=== PATIENT | female | born 1985 | race African-American/Black ===

== ENCOUNTER 2017-07-15 22:47 | Emergency (ER) | payer SELFPAY | END 2017-07-16 02:06 | disposition home or self-care (01) | LOC: ER 22:47 | DX: S69.91XA Unspecified injury of right wrist, hand and finger(s), initial encounter (principal); S69.92XA Unspecified injury of left wrist, hand and finger(s), initial encounter; X58.XXXA Exposure to other specified factors, initial encounter; Y93.89 Activity, other specified; Y92.89 Other specified places as the place of occurrence of the external cause; Y99.8 Other external cause status | CPT/HCPCS: 99283 ==

== ENCOUNTER 2018-09-30 18:43 | Emergency (ER) | payer SELFPAY ==
[~2018-09-30] VITALS: Ht 162.6 cm; Wt 72.6 kg
[~2018-09-30 18:43] MED LIST: BACI3.5O8 OS; HYDR25TA PO; SULF1TAB24 PO
[2018-09-30 19:32] LABS: BILIRUBIN,URINE NEGATIVE (NEG); CLARITY,URINE CLEAR; COLOR,URINE YELLOW; NITRITE,URINE NEGATIVE (NEG); PH,URINE 5.5; PROTEIN,URINE NEGATIVE (NEG-TRACE); UROBILINOGEN,URINE 0.2 mg/dL (0.2 mg/dL)
[2018-09-30 19:39] LABS: SQUAMOUS EPITHELIAL CELL,UR MANY /LPF
[2018-09-30 19:41] LABS: BACTERIA,URINE MODERATE /HPF (0-FEW); WBC,URINE 20-40 /HPF (0-4)
[2018-09-30 19:46] LABS: BASO % 0 % (0-3); EOS # 0.1 x10^3/uL (0.0-0.7); EOS % 1 % (0-3); HEMATOCRIT 39.6 % (36.0-47.0); HEMOGLOBIN 13.8 g/dL (12.0-15.5); LYMPH # 2.3 x10^3/uL (1.0-4.8); LYMPH % 24 % (24-48); MEAN CORPUSCULAR HEMOGLOBIN 33 pg (25-35); MEAN CORPUSCULAR HGB CONC 35 g/dL (31-37); MEAN CORPUSCULAR VOLUME 95 fL (79-100); MONO % 10 % (0-9); NEUT # 6.2 x10^3/uL (1.8-7.7); NEUT % 65 % (31-73); PLATELET COUNT 235 x10^3/uL (140-400); RED BLOOD COUNT 4.19 x10^6/uL (3.50-5.40); RED CELL DISTRIBUTION WIDTH 12.7 % (11.5-14.5); WHITE BLOOD COUNT 9.6 x10^3/uL (4.0-11.0)
[2018-09-30 19:55] LABS: CREATININE 0.8 mg/dL (0.6-1.0); GFR 101.2; POTASSIUM 3.6 mmol/L (3.5-5.1)
[2018-09-30 20:01] LABS: U PREG PATIENT NEGATIVE (NEG)
[2018-09-30 20:01] LABS: ALBUMIN 3.6 g/dL (3.4-5.0); ALBUMIN/GLOBULIN RATIO 0.9 (1.0-1.7); MAGNESIUM 1.8 mg/dL (1.8-2.4); TOTAL BILIRUBIN 0.2 mg/dL (0.2-1.0); TOTAL PROTEIN 7.4 g/dL (6.4-8.2)
[2018-09-30] MEDS ORDERED: IV NORMAL SALINE 1000ML BAG 1,000 ML IV ONE (21:00)
[2018-09-30] MEDS ORDERED: KETOROLAC 15 MG/ML VIAL. IV ONE (21:00)
[2018-09-30] MEDS ORDERED: ONDANSETRON PF 4 MG/2 ML VIAL. IV ONE (21:00)
--- NOTE | 2018-09-30 21:23 | RAD ---
PQRS Compliance statement: One or more of the following individualized dose reduction techniques were utilized for this examination: 1. Automated exposure control. 2. Adjustment of the mA and/or kV according to patient size. 3. Use of iterative reconstruction technique. Indication:Right flank pain. TECHNIQUE: CT abdomen and pelvis without IV contrast with multiplanar reformats. COMPARISON: None FINDINGS: Limited evaluation of solid abdominal and pelvic organs due to lack of IV contrast. Heart is normal in size. No pericardial or pleural effusion. Clear lung bases. Noncontrast appearance of the liver, spleen, gallbladder, pancreas, adrenals within normal limits. No nephrolithiasis or hydronephrosis. No free pelvic fluid or ascites. No bowel obstruction. Normal appendix. Uterus is retroverted. Urinary bladder demonstrates no radiopaque stone. No pneumoperitoneum. No suspicious bony lesion. IMPRESSION: Limited evaluation of solid abdominal and pelvic organs due to lack of IV contrast. No nephrolithiasis or hydronephrosis. No bowel obstruction. Normal appendix. Electronically signed by: Omega Cifuentes DO (09/30/2018 9:20 PM) [facility]
[2018-09-30 21:42] VITALS: BP 130/70
[2018-09-30] MEDS ORDERED: CEPH-264 PO (21:43)
--- NOTE | 2018-09-30 21:43 | PHYS DOC ---
Past Medical History Past Medical History: UTI (ILIR LOGAN APRN) Past Surgical History: No Surgical History (ILIR LOGAN APRN) Alcohol Use: Occasionally Drug Use: None (ILIR LOGAN APRN) Adult General Chief Complaint Chief Complaint: FLANK PAIN HPI HPI Patient is a 33 year old AA female who presents to the ER with complaints of right flank pain and frequent urination for the last 2 days. Patient denies any dysuria, hematuria, or foul smell to her urine. She denies any recent injury or history of back injuries. She states that her last bowel movement was 2 days ago and reports concerns of constipation. She denies any fever, nausea, vomiting, diarrhea, cough, shortness of breath, wheezing. Currently she rates her pain as 7 out of 10 on the pain scale, she denies any alleviating or exacerbating factors. (ILIR LOGAN APRN) Review of Systems Review of Systems Constitutional: Denies fever or chills [] Eyes: Denies change in visual acuity, redness, or eye pain [] HENT: Denies nasal congestion or sore throat [] Respiratory: Denies cough or shortness of breath [] Cardiovascular: No additional information not addressed in HPI [] GI: Denies abdominal pain, nausea, vomiting, or diarrhea; see history of present illness : Denies dysuria or hematuria; see history of present illness[] Musculoskeletal: Denies joint pain [] Integument: Denies rash or skin lesions [] Neurologic: Denies headache, focal weakness or sensory changes [] Complete systems were reviewed and found to be within normal limits, except as documented in this note. (ILIR LOGAN APRN) Current Medications Current Medications Current Medications Medications (Trade) Dose Ordered Sig/Katherine Start Time Stop Time Status Last Admin Dose Admin Ketorolac Tromethamine (Toradol 15mg Vial) 15 mg 1X ONCE 09/30/18 21:00 09/30/18 21:01 DC 09/30/18 20:30 15 MG Ondansetron HCl (Zofran) 4 mg 1X ONCE 09/30/18 21:00 09/30/18 21:01 DC 09/30/18 20:29 4 MG Sodium Chloride 1,000 ml @ 1,000 mls/hr 1X ONCE 09/30/18 21:00 09/30/18 21:49 DC 09/30/18 20:30 1,000 MLS/HR (MIR VERAS MD) Allergies Allergies Allergies Coded Allergies Type Severity Reaction Last Updated Verified No Known Drug Allergies 02/20/14 No (MIR VERAS MD) Physical Exam Physical Exam Constitutional: Well developed, well nourished, no acute distress, non-toxic appearance. [] HENT: Normocephalic, atraumatic, bilateral external ears normal, oropharynx catrachito st, no oral exudates, nose normal. [] Eyes: PERRLA, conjunctiva normal, no discharge. [] Neck: Normal range of motion, no stridor. [] Cardiovascular:Heart rate regular rhythm, no murmur [] Lungs & Thorax: Bilateral breath sounds clear to auscultation [] Abdomen: Bowel sounds normal, soft, no tenderness, no masses, no pulsatile masses. [] Skin: Warm, dry, no erythema, no rash. [] Back: Right CVA tenderness. [] Extremities: No cyanosis, ROM intact Neurologic: Alert and oriented X 3, no focal deficits noted. [] Psychologic: Affect normal, judgement normal, mood normal. [] (ILIR LOGAN APRN) Current Patient Data Vital Signs Vital Signs Date Time Temp Pulse Resp B/P (MAP) Pulse Ox O2 Delivery O2 Flow Rate FiO2 09/30/18 21:42 97 18 130/70 (90) 100 Room Air 09/30/18 19:05 99.1 99.1 (MIR VERAS MD) Lab Values Laboratory Tests Test 09/30/18 18:58 09/30/18 19:00 09/30/18 19:36 POC Urine HCG, Qualitative Hcg negative (Negative) Urine Collection Type Unknown Urine Color Yellow Urine Clarity Clear Urine pH 5.5 Urine Specific [place] 1.020 Urine Protein Negative mg/dL (NEG-TRACE) Urine Glucose (UA) Negative mg/dL (NEG) Urine Ketones (Stick) Negative mg/dL (NEG) Urine Blood Small (NEG) Urine Nitrite Negative (NEG) Urine Bilirubin Negative (NEG) Urine Urobilinogen Dipstick 0.2 mg/dL (0.2 mg/dL) Urine Leukocyte Esterase Moderate (NEG) Urine RBC 1-2 /HPF (0-2) Urine WBC 20-40 /HPF (0-4) Urine Squamous Epithelial Cells Many /LPF Urine Bacteria Moderate /HPF (0-FEW) Urine Mucus Marked /LPF Urine Test Negative (NEG) White Blood Count 9.6 x10^3/uL (4.0-11.0) Red Blood Count 4.19 x10^6/uL (3.50-5.40) Hemoglobin 13.8 g/dL (12.0-15.5) Hematocrit 39.6 % (36.0-47.0) Mean Corpuscular Volume 95 fL (79-100) Mean Corpuscular Hemoglobin 33 pg (25-35) Mean Corpuscular Hemoglobin Concent 35 g/dL (31-37) Red Cell Distribution Width 12.7 % (11.5-14.5) Platelet Count 235 x10^3/uL (140-400) Neutrophils (%) (Auto) 65 % (31-73) Lymphocytes (%) (Auto) 24 % (24-48) Monocytes (%) (Auto) 10 % (0-9) H Eosinophils (%) (Auto) 1 % (0-3) Basophils (%) (Auto) 0 % (0-3) Neutrophils # (Auto) 6.2 x10^3/uL (1.8-7.7) Lymphocytes # (Auto) 2.3 x10^3/uL (1.0-4.8) Monocytes # (Auto) 1.0 x10^3/uL (0.0-1.1) Eosinophils # (Auto) 0.1 x10^3/uL (0.0-0.7) Basophils # (Auto) 0.0 x10^3/uL (0.0-0.2) Sodium Level 139 mmol/L (136-145) Potassium Level 3.6 mmol/L (3.5-5.1) Chloride Level 102 mmol/L (98-107) Carbon Dioxide Level 27 mmol/L (21-32) Anion Gap 10 (6-14) Blood Urea Nitrogen 10 mg/dL (7-20) Creatinine 0.8 mg/dL (0.6-1.0) Estimated GFR (Cockcroft-Gault) 101.2 BUN/Creatinine Ratio 13 (6-20) Glucose Level 101 mg/dL (70-99) H Calcium Level 9.0 mg/dL (8.5-10.1) Magnesium Level 1.8 mg/dL (1.8-2.4) Total Bilirubin 0.2 mg/dL (0.2-1.0) Aspartate Amino Transferase (AST) 17 U/L (15-37) Alanine Aminotransferase (ALT) 29 U/L (14-59) Alkaline Phosphatase 55 U/L (46-116) Total Protein 7.4 g/dL (6.4-8.2) Albumin 3.6 g/dL (3.4-5.0) Albumin/Globulin Ratio 0.9 (1.0-1.7) L Laboratory Tests 09/30/18 19:36 Laboratory Tests 09/30/18 19:36 (MIR VERAS MD) EKG EKG [] (ILIR LOGAN APRN) Radiology/Procedures Radiology/Procedures PROCEDURE: CT ABDOMEN PELVIS WO CONTRAST PQRS Compliance statement: One or more of the following individualized dose reduction techniques were utilized for this examination: 1. Automated exposure control. 2. Adjustment of the mA and/or kV according to patient size. 3. Use of iterative reconstruction technique. Indication:Right flank pain. TECHNIQUE: CT abdomen and pelvis without IV contrast with multiplanar reformats. COMPARISON: None FINDINGS: Limited evaluation of solid abdominal and pelvic organs due to lack of IV contrast. Heart is normal in size. No pericardial or pleural effusion. Clear lung bases. Noncontrast appearance of the liver, spleen, gallbladder, pancreas, adrenals within normal limits. No nephrolithiasis or hydronephrosis. No free pelvic fluid or ascites. No bowel obstruction. Normal appendix. Uterus is retroverted. Urinary bladder demonstrates no radiopaque stone. No pneumoperitoneum. No suspicious bony lesion. IMPRESSION: Limited evaluation of solid abdominal and pelvic organs due to lack of IV contrast. No nephrolithiasis or hydronephrosis. No bowel obstruction. Normal appendix. [] (ILIR LOGAN APRN) Course & Med Decision Making Course & Med Decision Making Pertinent Labs and Imaging studies reviewed. (See chart for details) dx: UTI with hematuria UA was concerning for a 45 blood cell count, moderate bacteria, and 1-2 red blood cells; CT abdomen and pelvis was negative for any kidney stones or h ydronephrosis, no acute findings CBC unremarkable, CMP unremarkable Prescription was written for Keflex 500 mg by mouth twice a day 7 days. Patient was instructed to increase clear fluids and avoid bladder irritants. Primary care doctor if symptoms persist, return to the ER symptoms worsen. Patient verbalized an understanding of home care, medications, follow-up, and return to ED instructions and was in agreement with the plan of care. (ILIR LOGAN APRN) Course & Med Decision Making A Staff Physician Addendum: I was working in the ER during the course of this patient's visit. I was available for consultation as needed, but I was not directly involved in the care of this patient. (MIR VERAS MD) Dragon Disclaimer Dragon Disclaimer This electronic medical record was generated, in whole or in part, using a voice recognition dictation system. (ILIR LOGAN APRN) Departure Departure Impression: Primary Impression: Urinary tract infection Disposition: HOME, SELF-CARE Condition: STABLE Referrals: NO PCP (PCP) Patient Instructions: Urinary Tract Infection, [id number] Additional Instructions: Fill prescription(s) and use as directed. Avoid bladder irritants such as caffeine, carbonation, and spicy foods. Increase clear fluids. Follow up with your primary care doctor if symptoms persist, return to the ER if symptoms worsen. Scripts Cephalexin (KEFLEX) 500 Mg Capsule 1 CAP PO BID, #14 CAP 0 Refills Prov: ILIR LOGAN APRN 09/30/18 Problem Qualifiers Primary Impression: Urinary tract infection Urinary tract infection type: site unspecified Hematuria presence: with hematuria Qualified Codes: N39.0 - Urinary tract infection, site not specified; R31.9 - Hematuria, unspecified ILIR LOGAN APRN Sep 30, 2018 21:43 MIR VERAS MD Oct 01, 2018 18:46
== END 2018-09-30 21:48 | disposition home or self-care (01) ==
LOC: ER 18:43
DX: N39.0 Urinary tract infection, site not specified (principal)
CPT/HCPCS: 36415; 74176; 80053; 81001; 81025; 83735; 85025; 87086; 96374; 96375; 99285; J1885; J2405; J7030

== ENCOUNTER 2021-03-10 11:05 | Emergency (ER) | payer SELFPAY ==
[~2021-03-10] VITALS: Ht 154.9 cm; Wt 62.4 kg
[~2021-03-10 11:05] MED LIST changes: +CEPH-264 PO
--- NOTE | 2021-03-10 13:34 | PHYS DOC ---
Past Medical History Past Medical History: No Pertinent History, UTI Past Surgical History: No Surgical History Smoking Status: Current Every Day Smoker Additional Information: 0.5 PPD Alcohol Use: None Drug Use: None General Adult EDM: Chief Complaint: DENTAL PROBLEM HPI: HPI: Patient is a 36-year-old female that presents today with left upper jaw pain. Patient states she has had a broken tooth in the left upper jaw for quite some time, but over the last 2 days has become more painful, leaving her the inability to eat or drink due to pain. Patient did not have a primary dentist. Patient denies fever or chills, chest pain, or shortness of air. Review of Systems: Review of Systems: Constitutional: Denies fever or chills. [] Eyes: Denies change in visual acuity. [] HENT: Right upper tooth pain. Respiratory: Denies cough or shortness of breath. [] Cardiovascular: Denies chest pain or edema. [] GI: Denies abdominal pain, nausea, vomiting, bloody stools or diarrhea. [] : Denies dysuria. [] Musculoskeletal: Denies back pain or joint pain. [] Integument: Denies rash. [] Neurologic: Denies headache, focal weakness or sensory changes. [] Endocrine: Denies polyuria or polydipsia. [] Lymphatic: Denies swollen glands. [] Psychiatric: Denies depression or anxiety. [] Heart Score: C/O Chest Pain: N/A Risk Factors: Risk Factors: DM, Current or recent (<one month) smoker, HTN, HLP, family history of CAD, obesity. Risk Scores: Score 0 - 3: 2.5% MACE over next 6 weeks - Discharge Home Score 4 - 6: 20.3% MACE over next 6 weeks - Admit for Clinical Observation Score 7 - 10: 72.7% MACE over next 6 weeks - Early Invasive Strategies Allergies: Allergies: Allergies Coded Allergies Type Severity Reaction Last Updated Verified No Known Drug Allergies 02/20/14 No Physical Exam: PE: Constitutional: Well developed, well nourished, no acute distress, non-toxic appearance. [] HENT: Normocephalic, atraumatic, bilateral external ears normal, oropharynx moist, left upper tooth broken swelling in the gums noted, no abscess noted. No facial swelling noted. Eyes: PERRLA, EOMI, conjunctiva normal, no discharge. [] Neck: Normal range of motion, no tenderness, supple, no stridor. [] Cardiovascular:Heart rate regular rhythm, no murmur [] Lungs & Thorax: Bilateral breath sounds clear to auscultation [] Abdomen: Bowel sounds normal, soft, no tenderness, no masses, no pulsatile masses. [] Skin: Warm, dry, no erythema, no rash. [] Back: No tenderness, no CVA tenderness. [] Extremities: No tenderness, no cyanosis, no clubbing, ROM intact, no edema. [] Neurologic: Alert and oriented X 3, normal motor function, normal sensory function, no focal deficits noted. [] Psychologic: Affect normal, judgement normal, mood normal. [] Current Patient Data: Vital Signs: Vital Signs Date Time Temp Pulse Resp B/P (MAP) Pulse Ox O2 Delivery O2 Flow Rate FiO2 03/10/21 13:16 98.7 105 16 159/102 (121) 96 Room Air 98.7 EKG: EKG: [] Radiology/Procedures: Radiology/Procedures: [] Course & Med Decision Making: Course & Med Decision Making Pertinent Labs and Imaging studies reviewed. (See chart for details) Patient has been given a list of dental clinics in the [facility] area by the nursing staff. Patient is encouraged to call today to find an appointment as soon as possible for taking care of this tooth pain. Patient verbalizes understanding of this. Patient is also encouraged to rinse mouth out with salt water brush gently through there and eat mechanically soft foods. Janice Disclaimer: Janice Disclaimer: This electronic medical record was generated, in whole or in part, using a voice recognition dictation system. Departure Departure Impression: Primary Impression: Pain, dental Disposition: HOME / SELF CARE / HOMELESS Condition: LEFT WITHOUT BEING SEEN Referrals: NO PCP (PCP) Patient Instructions: Dental Pain Additional Instructions: Hydrocodone take 1 tablet every 6 hours as needed for severe pain. Motrin take as labeled directed as needed for mild to moderate pain Rinse mouth out with salt water after every meal Eat a mechanically soft diet such as Jell-O's and puddings until the swelling and the pain is decreased. Follow-up with one of the dentist on the dental clinic list as soon as possible. Augmentin take 1 tablet every 12 hours as needed for 10 days. Scripts Hydrocodone Bit/Acetaminophen (HYDROCODONE-APAP 5-325 ) 1 Tab Tablet 1 TAB PO PRN Q6HRS PRN for PAIN, #10 TAB 0 Refills Prov: KRISTINE HORNE [employer] 03/10/21 Amoxicillin/Potassium Clav (AUGMENTIN 875-125 TABLET) 1 Each Tablet 1 TAB PO BID for dental pain for 10 Days, #20 TAB 0 Refills Prov: KRISTINE HORNE [employer] 03/10/21 KRISTINE HORNE [employer] Mar 10, 2021 13:34
[2021-03-10] MEDS ORDERED: AMOX1TAB61 PO (13:39)
[2021-03-10] MEDS ORDERED: HYDR-2761 PO (13:39)
[2021-03-10 13:54] VITALS: BP 142/100
== END 2021-03-10 13:54 | disposition home or self-care (01) ==
LOC: ER 11:05
DX: K08.89 Other specified disorders of teeth and supporting structures (principal); R68.84 Jaw pain; F17.200 Nicotine dependence, unspecified, uncomplicated; Z87.440 Personal history of urinary (tract) infections
CPT/HCPCS: 99283